=== PATIENT | male | born 1935 | race Hispanic/Latino ===

== ENCOUNTER → 2018-01-03 | Outpatient (CLI) | payer OTHER ==
[~2018-01-03] MED LIST: ASPI-1012 PO; HYDR-309 PO; LINA1TAB5 PO; PIOG45TA64 PO; SIMV40TA5 PO
== END | disposition home or self-care (01) ==
LOC: RAH 12:38
PROVIDERS: ATTEND Orthopaedic Surgery
DX: S83.242D Other tear of medial meniscus, current injury, left knee, subsequent encounter (principal); M17.12 Unilateral primary osteoarthritis, left knee; X58.XXXD Exposure to other specified factors, subsequent encounter
CPT/HCPCS: 73721

== ENCOUNTER 2018-01-30 16:00 | Inpatient (IN) | payer OTHER ==
[~2018-01-30] VITALS: Ht 174 cm; Wt 86.7 kg
[2018-01-30 17:25] VITALS: BP 137/68
[2018-01-30 17:33] LABS: APPEARANCE,URINE Clear (CLEAR); BILIRUBIN,URINE Small (NEGATIVE); COLOR,URINE Dark Yellow (YELLOW); GLUCOSE, URINE (UA) Negative (NEGATIVE); KETONES,URINE Negative (NEGATIVE); LEUKOCYTE ESTERASE ,URINE Negative (NEGATIVE); NITRATE,URINE Negative (NEGATIVE); OCCULT BLOOD,URINE Negative (NEGATIVE); PROTEIN,URINE Trace (NEGATIVE)
[2018-01-30 17:41] LABS: BACTERIA,URINE Rare /HPF (None Seen); RBC,URINE 0-1 /HPF (0-1); SQUAMOUS EPITHELIAL CELL,UR Rare /HPF (0-2); WBC,URINE 0-1 /HPF (0-1)
[2018-01-30 17:44] LABS: INR 0.95 (0.85-1.15)
[2018-01-31] VITALS (20 sets, daily range): BP systolic 144–178; BP diastolic 68–96
[2018-01-31] MEDS: CEFAZOLIN SODIUM 1 GM VIAL IVP SCH ×4 (06:00→23:34)
[2018-01-31] MEDS ORDERED: TRANEXAMIC ACID 1000MG/10ML IV ONE (07:19)
[2018-01-31] MEDS ORDERED: CEFAZOLIN SODIUM 1 GM VIAL ONE (07:19)
[2018-01-31] MEDS ORDERED: EPINEPHRINE 1 MG/ML AMPULE ONE (07:20)
[2018-01-31] MEDS ORDERED: BUPIVACAINE/PF 0.25% 30ML VIAL IJ ONE (07:20)
[2018-01-31] MEDS ORDERED: SODIUM CHLORIDE 0.9% 1000ML 1,000 ML IV ONE (07:22)
[2018-01-31] MEDS ORDERED: LINA1TAB5 PO (08:04)
[2018-01-31] MEDS ORDERED: MIDAZOLAM HCL 1 MG/ML 2ML VIAL ONE (08:04)
[2018-01-31] MEDS ORDERED: FENTANYL CITRATE PF 50 MCG/1 ML 2ML VIAL ONE ×3 (08:04→08:59)
[2018-01-31] MEDS ORDERED: PROPOFOL 10 MG/ML 20ML VIAL IV ONE (08:04)
[2018-01-31] MEDS ORDERED: SIMV40TA5 PO (08:05)
[2018-01-31] MEDS ORDERED: PIOG45TA64 PO (08:06)
[2018-01-31] MEDS ORDERED: ROPIVACAINE 0.5% 5MG/ML 30ML IJ ONE (08:06)
[2018-01-31] MEDS ORDERED: CEFAZOLIN SODIUM 1 GM VIAL IRRIG ONE (08:52)
[2018-01-31] MEDS ORDERED: GLYCOPYRROLATE 0.2 MG/ML 5 ML VIAL ONE (09:00)
[2018-01-31] MEDS ORDERED: NEOSTIGMINE 5MG/5ML SYR IV ONE (09:00)
[2018-01-31] MEDS ORDERED: ROCURONIUM BROMIDE 10MG/1ML 5ML VL ONE (09:00)
[2018-01-31] MEDS ORDERED: LIDOCAINE PF 2% 5ML ABBOJECT ONE (09:00)
[2018-01-31] MEDS ORDERED: ONDANSETRON HCL 4 MG/2 ML VIAL ONE (09:01)
[2018-01-31] MEDS ORDERED: POTASSIUM CHLORIDE 10% ELIXIR 20 MEQ/15 ML UDCUP PO PRN (10:00)
[2018-01-31] MEDS ORDERED: KETOROLAC TROMETHAMINE 15MG/ML IV PRN (10:00)
[2018-01-31] MEDS ORDERED: TRAMADOL HCL 50 MG TABLET PO PRN (10:00)
[2018-01-31] MEDS ORDERED: POTASSIUM CHLORIDE 20 MEQ ERTAB PO PRN (10:00)
[2018-01-31] MEDS ORDERED: OXYCODONE HCL 5 MG TAB PO PRN (10:00)
[2018-01-31] MEDS ORDERED: CALCIUM CARBONATE 500 MG TABLET PO PRN (10:00)
[2018-01-31] MEDS ORDERED: LIDOCAINE HCL-MPF 1% 2ML VIAL IVP PRN (10:00)
[2018-01-31] MEDS ORDERED: FERROUS FUMARATE 324 MG TABLET PO PRN (10:00)
[2018-01-31] MEDS ORDERED: ONDANSETRON HCL 4 MG/2 ML VIAL IVP PRN (10:00)
[2018-01-31] MEDS: ACETAMINOPHEN EXTRA STRENGTH 500 MG TABLET PO SCH ×2 (10:00→18:21)
[2018-01-31] MEDS ORDERED: DiphenhydrAMINE HCL 50 MG/ML VIAL IVP PRN (10:00)
[2018-01-31] MEDS ORDERED: POTASSIUM CHLORIDE 20MEQ/100ML 100 ML IV PRN (10:00)
[2018-01-31] MEDS ORDERED: DURAMORPH PF1 MG/ML 10ML AMP IV ONE (10:11)
[2018-01-31] MEDS ORDERED: MEPERIDINE-PF 25 MG/ML SYG ONE (10:40)
[2018-01-31] MEDS: INSULIN HUMULIN R 100 UNIT/ML 3ML SQ SCH ×3 (11:30→21:00)
[2018-01-31] MEDS: SODIUM CHLORIDE 0.9% 1000ML 1,000 ML IV SCH ×2 (11:55→19:46)
[2018-01-31] MEDS: OXYCODONE HCL 5 MG TAB PO PRN ×3 (14:34→23:51)
[2018-01-31] MEDS ORDERED: CEFAZOLIN 2GM / 50 ML 50 ML IV SCH (15:00)
[2018-01-31] MEDS: CELECOXIB 200 MG CAP PO SCH (19:46)
[2018-01-31] MEDS: PREGABALIN 25 MG CAP PO SCH (19:46)
[2018-01-31] MEDS: ASPIRIN 325 MG TABLET PO SCH (19:46)
[2018-01-31] MEDS: FAMOTIDINE 20MG TAB 20 MG TAB PO SCH (19:46)
[2018-02-01 00:16] VITALS: BP 132/81
[2018-02-01] MEDS: ACETAMINOPHEN EXTRA STRENGTH 500 MG TABLET PO SCH ×3 (01:53→19:12)
[2018-02-01] MEDS: SODIUM CHLORIDE 0.9% 1000ML 1,000 ML IV SCH (01:53)
[2018-02-01 04:16] VITALS: BP 123/70
[2018-02-01 05:55] LABS: HEMATOCRIT 33.6 % (42-54); MEAN CORPUSCULAR HEMOGLOBIN 29.2 pg (27.0-33.0); MEAN CORPUSCULAR HGB CONC 34.3 g/dL (32.0-36.0); MEAN CORPUSCULAR VOLUME 85.2 fL (79-99); PLATELET COUNT (AUTO) 143 K/uL (130-400); RED BLOOD CELL COUNT(AUTO) 3.94 MIL/uL (4.50-6.20); WHITE BLOOD COUNT (AUTO) 6.9 K/uL (4.8-10.8)
[2018-02-01 06:07] LABS: CREATININE 1.3 mg/dL (0.5-1.5); POTASSIUM 4.9 mmol/L (3.5-5.1)
[2018-02-01] MEDS: INSULIN HUMULIN R 100 UNIT/ML 3ML SQ SCH ×3 (06:23→16:30)
[2018-02-01 08:01] VITALS: BP 117/76
[2018-02-01] MEDS: ATORVASTATIN CALCIUM 20 MG TABLET PO SCH (08:43)
[2018-02-01] MEDS: PREGABALIN 25 MG CAP PO SCH ×2 (08:43→20:28)
[2018-02-01] MEDS: ASPIRIN 325 MG TABLET PO SCH ×2 (08:43→20:28)
[2018-02-01] MEDS: PIOGLITAZONE HCL 45 MG TAB PO SCH (08:43)
[2018-02-01] MEDS: CELECOXIB 200 MG CAP PO SCH ×2 (08:44→20:28)
[2018-02-01] MEDS: TAMSULOSIN HCL 0.4 MG CAP.ER.24H PO SCH (08:44)
[2018-02-01] MEDS: FAMOTIDINE 20MG TAB 20 MG TAB PO SCH ×2 (08:44→20:28)
[2018-02-01] MEDS: POLYETHYLENE GLYCOL 3350 17 GM POWD.PACK PO SCH (08:45)
[2018-02-01] MEDS: JENTADUETO PO SCH ×2 (08:45→21:00)
[2018-02-01] MEDS: OXYCODONE HCL 5 MG TAB PO PRN ×2 (08:52→20:32)
[2018-02-01 11:14] VITALS: BP 133/67
[2018-02-01 16:17] VITALS: BP 118/57
[2018-02-01 20:24] VITALS: BP 123/74
[2018-02-02] MEDS ORDERED: SODIUM CHLORIDE 0.9% 1000ML 1,000 ML IV ONE (00:10)
[2018-02-02 00:20] VITALS: BP 137/69
[2018-02-02] MEDS: INSULIN HUMULIN R 100 UNIT/ML 3ML SQ SCH ×4 (00:44→16:30)
[2018-02-02] MEDS: ACETAMINOPHEN EXTRA STRENGTH 500 MG TABLET PO SCH ×2 (03:39→09:01)
[2018-02-02 04:20] VITALS: BP 115/72
[2018-02-02 07:30] VITALS: BP 141/73
[2018-02-02] MEDS: ATORVASTATIN CALCIUM 20 MG TABLET PO SCH (08:54)
[2018-02-02] MEDS: CELECOXIB 200 MG CAP PO SCH (08:54)
[2018-02-02] MEDS: ASPIRIN 325 MG TABLET PO SCH (08:54)
[2018-02-02] MEDS: PIOGLITAZONE HCL 45 MG TAB PO SCH (08:54)
[2018-02-02] MEDS: TAMSULOSIN HCL 0.4 MG CAP.ER.24H PO SCH (08:54)
[2018-02-02] MEDS: POLYETHYLENE GLYCOL 3350 17 GM POWD.PACK PO SCH (08:54)
[2018-02-02] MEDS: PREGABALIN 25 MG CAP PO SCH (08:54)
[2018-02-02] MEDS: FAMOTIDINE 20MG TAB 20 MG TAB PO SCH (08:54)
[2018-02-02] MEDS: JENTADUETO PO SCH (08:57)
[2018-02-02] MEDS: OXYCODONE HCL 5 MG TAB PO PRN (08:59)
[2018-02-02] MEDS ORDERED: HYDR-309 PO (10:57)
[2018-02-02] MEDS ORDERED: ASPI-1012 PO (10:57)
[2018-02-02 11:00] VITALS: BP 145/75
[2018-02-03] MEDS ORDERED: BISACODYL 10 MG SUPP.RECT RC PRN (10:00)
== END 2018-02-02 18:05 | disposition home health service (06) | DRG 470 ==
LOC: EDSTATUS 16:00 → DAHIP 01-31 06:19 → 4AH 01-31 10:50
PROVIDERS: ADMIT Orthopaedic Surgery; ATTEND Orthopaedic Surgery
PROC: 0SRC069 Replacement of Right Knee Joint with Oxidized Zirconium on Polyethylene Synthetic Substitute, Cemented, Open Approach (ICD-10-PCS; principal; 2018-01-31 08:13)
DX: M17.11 Unilateral primary osteoarthritis, right knee (principal); E11.9 Type 2 diabetes mellitus without complications; E78.5 Hyperlipidemia, unspecified; I25.10 Atherosclerotic heart disease of native coronary artery without angina pectoris; G89.29 Other chronic pain; Z95.1 Presence of aortocoronary bypass graft; Z83.3 Family history of diabetes mellitus
CPT/HCPCS: 36415; 80048; 81001; 82948; 85027; 85610; 85730; 88305; 88311; A4218; A4344; J0171; J0690; J1815; J1885; J2001; J2175; J2250; J2274; J2405; J2704; J2710; J2795; J3010; J3490; J7030